=== PATIENT | female | born 1940 | race Caucasian/White ===

== ENCOUNTER → 2019-12-10 | Outpatient (CLI) | payer OTHER ==
[~2019-12-10] MED LIST: ALPR.5 PO; ASPI81EC PO; FAMO20 PO; HYDACE5 PO; MULVITMIND PO
[2019-12-10 11:31] LABS: BASOPHILS ABSOLUTE AUTO 0.05 K/mm3 (0.00-0.23); BASOPHILS PERCENT AUTO 1 % (0-2); EOSINOPHILS ABSOLUTE AUTO 0.07 K/mm3 (0.00-0.68); EOSINOPHILS PERCENT AUTO 2 % (0-6); Hematocrit 41.6 % (33.0-51.0); Hemoglobin 13.8 g/dL (11.5-16.0); IMMATURE GRAN ABSOLUTE AUTO 0.01 K/mm3 (0.00-0.10); IMMATURE GRAN PERCENT AUTO 0 % (0-1); LYMPHOCYTES ABSOLUTE AUTO 1.72 K/mm3 (0.84-5.20); LYMPHOCYTES PERCENT AUTO 39 % (21-46); MONOCYTES ABSOLUTE AUTO 0.38 K/mm3 (0.16-1.47); MONOCYTES PERCENT AUTO 9 % (4-13); Mean Corpuscular HGB 31.2 pg (26.0-34.0); Mean Corpuscular HGB Conc 33.2 g/dL (31.5-36.5); Mean Corpuscular Volume 94 fL (80-100); Mean Platelet Volume 10.2 fL (9.1-12.4); NEUTROPHILS ABSOLUTE AUTO 2.23 K/mm3 (1.96-9.15); NEUTROPHILS PERCENT AUTO 50 % (41-73); Platelet Count 215 K/mm3 (150-400); RDW Coefficient Variation 12.4 % (11.7-14.2); RDW Standard Deviation 42.7 fL (35.1-46.3); Red Blood Cell Count 4.42 M/mm3 (3.80-5.20); White Blood Cell Count 4.46 K/mm3 (4.00-11.30)
[2019-12-10 11:45] LABS: Alanine Aminotransfer (ALT/SGP 31 U/L (12-78); Albumin, Blood 3.2 g/dL (3.4-5.0); Albumin/Globulin Ratio 0.8 (0.8-1.8); Alk Phos 110 U/L (40-126); Anion Gap 8 mmol/L (6-16); Aspartate Aminotrans (AST/SGOT 26 U/L (12-37); Bilirubin, Total 0.4 mg/dL (0.1-1.0); Blood Urea Nitrogen 12 mg/dL (8-24); Bun/Creatinine Ratio 15.2 (12.0-20.0); CO2, Blood 27 mmol/L (21-32); Calcium, Blood 8.6 mg/dL (8.5-10.1); Chloride, Blood 108 mmol/L (98-108); Creatinine, Blood 0.79 mg/dL (0.40-1.00); Globulin, Blood 3.9 g/dL (2.2-4.0); Glomerular Filtration Rate >60 (60-); Glucose, Blood 94 mg/dL (70-99); Potassium, Blood 4.4 mmol/L (3.5-5.5); Sodium, Blood 143 mmol/L (136-145); Total Protein, Blood 7.1 g/dL (6.4-8.2)
== END ==
LOC: LAB SHORT 11:26 → LAB EV 11:26
PROVIDERS: Physician Assistant
DX: R25.2 Cramp and spasm (principal)
CPT/HCPCS: 80053; 85025

== ENCOUNTER 2019-12-22 06:59 | Emergency (ER) | payer OTHER ==
[~2019-12-22] VITALS: Ht 154.9 cm; Wt 74.8 kg
[2019-12-22 07:36] LABS: BASOPHILS ABSOLUTE AUTO 0.03 K/mm3 (0.00-0.23); BASOPHILS PERCENT AUTO 1 % (0-2); EOSINOPHILS ABSOLUTE AUTO 0.09 K/mm3 (0.00-0.68); EOSINOPHILS PERCENT AUTO 2 % (0-6); Hematocrit 42.5 % (33.0-51.0); Hemoglobin 13.9 g/dL (11.5-16.0); IMMATURE GRAN ABSOLUTE AUTO 0.01 K/mm3 (0.00-0.10); IMMATURE GRAN PERCENT AUTO 0 % (0-1); LYMPHOCYTES PERCENT AUTO 38 % (21-46); MONOCYTES ABSOLUTE AUTO 0.58 K/mm3 (0.16-1.47); MONOCYTES PERCENT AUTO 11 % (4-13); Mean Corpuscular HGB 31.3 pg (26.0-34.0); Mean Corpuscular HGB Conc 32.7 g/dL (31.5-36.5); Mean Corpuscular Volume 96 fL (80-100); Mean Platelet Volume 10.3 fL (9.1-12.4); NEUTROPHILS ABSOLUTE AUTO 2.73 K/mm3 (1.96-9.15); NEUTROPHILS PERCENT AUTO 49 % (41-73); Platelet Count 198 K/mm3 (150-400); RDW Coefficient Variation 12.2 % (11.7-14.2); RDW Standard Deviation 43.2 fL (35.1-46.3); Red Blood Cell Count 4.44 M/mm3 (3.80-5.20); White Blood Cell Count 5.54 K/mm3 (4.00-11.30)
[2019-12-22 07:58] LABS: Alanine Aminotransfer (ALT/SGP 28 U/L (12-78); Albumin, Blood 3.2 g/dL (3.4-5.0); Alk Phos 104 U/L (50-136); Anion Gap 3 mmol/L (6-16); Aspartate Aminotrans (AST/SGOT 23 U/L (12-37); Bilirubin, Total 0.5 mg/dL (0.1-1.0); Blood Urea Nitrogen 17 mg/dL (8-24); Bun/Creatinine Ratio 23.6 (12.0-20.0); CO2, Blood 27 mmol/L (21-32); Calcium, Blood 8.4 mg/dL (8.5-10.1); Chloride, Blood 113 mmol/L (98-108); Creatinine, Blood 0.72 mg/dL (0.40-1.00); Globulin, Blood 3.2 g/dL (2.2-4.0); Glomerular Filtration Rate >60 (60-); Glucose, Blood 87 mg/dL (70-99); Potassium, Blood 4.1 mmol/L (3.5-5.5); Sodium, Blood 143 mmol/L (136-145); Total Protein, Blood 6.4 g/dL (6.4-8.2); Troponin I 0.026 ng/mL (0.000-0.040)
== END 2019-12-22 10:58 | disposition home or self-care (01) ==
LOC: ER 06:59
PROVIDERS: Emergency Medicine
DX: R00.1 Bradycardia, unspecified (principal); K21.9 Gastro-esophageal reflux disease without esophagitis
CPT/HCPCS: 71046; 80053; 84484; 85025; 93005; 93010; 99285-25

== ENCOUNTER 2020-02-18 10:44 | Day surgery (SDC) | payer OTHER ==
[~2020-02-18] VITALS: Ht 157.5 cm; Wt 77.7 kg
[~2020-02-18 10:44] MED LIST changes: +Aspir 8181 MG PO
--- NOTE | 2020-02-19 07:44 | NUR ---
SHIFT SUMMARY PATIENT PLEASENT AND COOPERATIVE THROUGHOUT THE NIGHT. PATIENT APPEARED TO SLEEP WELL LAST NIGHT. PATIENT HAD MILD PAIN AT PACEMAKER SITE BUT DENIED NEED FOR ANY MEDICATION. ICE PLACED TO SITE FOR COMFORT. IV ABX GIVEN PER ORDERS. SLING IN PLACE PER ORDERS. PATIENT PROVIDED WITH POST PACEMAKER EDUCUCATION AND MOVEMENT RESTRICTIONS. PATIENT CURRENTLY SITTING UP IN CHAIR WATHCING TV. VITAL SIGNS CHARTED. REPORT GIVEN TO ONCOMING RN.
== END 2020-02-19 12:59 | disposition home or self-care (01) ==
LOC: MHTC 10:44 → PCU 16:40 → MHTC 02-19 12:59
DX: I49.5 Sick sinus syndrome (principal); I48.0 Paroxysmal atrial fibrillation; Z88.5 Allergy status to narcotic agent; I08.2 Rheumatic disorders of both aortic and tricuspid valves; I37.1 Nonrheumatic pulmonary valve insufficiency
CPT/HCPCS: 33208; 71045; 71046; 76937; 99152; 99153; A9270; C1785; C1894; C1898; J0153; J0690; J1644; J2250; J2405; J3010; J7030; J7040

== ENCOUNTER 2020-05-24 12:44 | Inpatient (IN) | payer OTHER ==
[~2020-05-24] VITALS: Ht 154.9 cm; Wt 74.8 kg
[2020-05-24 13:17] LABS: BASOPHILS ABSOLUTE AUTO 0.03 K/mm3 (0.00-0.23); BASOPHILS PERCENT AUTO 1 % (0-2); EOSINOPHILS ABSOLUTE AUTO 0.04 K/mm3 (0.00-0.68); EOSINOPHILS PERCENT AUTO 1 % (0-6); Hematocrit 41.3 % (33.0-51.0); Hemoglobin 13.7 g/dL (11.5-16.0); IMMATURE GRAN ABSOLUTE AUTO 0.02 K/mm3 (0.00-0.10); IMMATURE GRAN PERCENT AUTO 0 % (0-1); LYMPHOCYTES ABSOLUTE AUTO 1.59 K/mm3 (0.84-5.20); LYMPHOCYTES PERCENT AUTO 25 % (21-46); MONOCYTES ABSOLUTE AUTO 0.42 K/mm3 (0.16-1.47); MONOCYTES PERCENT AUTO 7 % (4-13); Mean Corpuscular HGB Conc 33.2 g/dL (31.5-36.5); Mean Corpuscular Volume 93 fL (80-100); NEUTROPHILS ABSOLUTE AUTO 4.31 K/mm3 (1.96-9.15); NEUTROPHILS PERCENT AUTO 67 % (41-73); Platelet Count 201 K/mm3 (150-400); RDW Coefficient Variation 12.2 % (11.7-14.2); Red Blood Cell Count 4.42 M/mm3 (3.80-5.20); White Blood Cell Count 6.41 K/mm3 (4.00-11.30)
[2020-05-24 13:41] LABS: Alanine Aminotransfer (ALT/SGP 22 U/L (12-78); Albumin, Blood 3.2 g/dL (3.4-5.0); Albumin/Globulin Ratio 0.9 (0.8-1.8); Alk Phos 109 U/L (50-136); Anion Gap 7 mmol/L (6-16); Aspartate Aminotrans (AST/SGOT 23 U/L (12-37); Bilirubin, Total 0.5 mg/dL (0.1-1.0); Blood Urea Nitrogen 14 mg/dL (8-24); Bun/Creatinine Ratio 16.3 (12.0-20.0); CO2, Blood 26 mmol/L (21-32); Calcium, Blood 8.5 mg/dL (8.5-10.1); Chloride, Blood 110 mmol/L (98-108); Creatinine, Blood 0.86 mg/dL (0.40-1.00); Globulin, Blood 3.4 g/dL (2.2-4.0); Glomerular Filtration Rate >60 (60-); Glucose, Blood 99 mg/dL (70-99); Potassium, Blood 4.1 mmol/L (3.5-5.5); Sodium, Blood 143 mmol/L (136-145); Total Protein, Blood 6.6 g/dL (6.4-8.2)
--- NOTE | 2020-05-24 19:39 | NUR ---
SHIFT SUMMARY PATIENT W/O C/O PAIN OR NAUSEA SINCE ARRIVAL TO FLOOR. SPOKE W/DR GARCIA RE: LOVENOX ORDERED BY ER, OK TO GIVE. NOC RN NOTIFIED. CALL LIGHT IN REACH. PATIENT REMINDED TO CALL FOR SBA TO BR. PATIENT SPOKE WITH DAUGHTER AFTER ADMIT TO FLOOR, SHE WILL NOTIFY REST OF FAMILY.
--- NOTE | 2020-05-24 21:20 | NUR ---
DR. GARCIA IN TO SEE PT, NO NEW ORDERS AT THIS TIME. PLAN FOR NPO AND EVALUATION WITH DR. CASTANON IN THE MORNING.
--- NOTE | 2020-05-25 04:30 | NUR ---
SHIFT SUMMARY PT A/OX4 WITH VSS, NO ACUTE CHANGES THIS SHIFT. PT DENIES PAIN OR N/V. IS NPO. IND WITH SBA TO BATHROOM WITH GB. PT APPEARS TO HAVE SLEPT WELL T/O SHIFT. PLAN SURGICAL CONSULT; POSSIBLE SURGERY OR D/C. PT CURRENTLY RESTING IN BED WITH EYES CLOSED IN SEMI FOWLERS WITH CALL LIGHT IN REACH. WILL CONT TO MONITOR FOR CHANGES IN PATIENT'S CONDITION AND GIVE REPORT TO ONCOMING RN.
[2020-05-25 06:34] LABS: BASOPHILS ABSOLUTE AUTO 0.03 K/mm3 (0.00-0.23); BASOPHILS PERCENT AUTO 1 % (0-2); EOSINOPHILS ABSOLUTE AUTO 0.05 K/mm3 (0.00-0.68); EOSINOPHILS PERCENT AUTO 1 % (0-6); Hematocrit 41.5 % (33.0-51.0); Hemoglobin 13.4 g/dL (11.5-16.0); IMMATURE GRAN ABSOLUTE AUTO 0.01 K/mm3 (0.00-0.10); IMMATURE GRAN PERCENT AUTO 0 % (0-1); LYMPHOCYTES ABSOLUTE AUTO 1.65 K/mm3 (0.84-5.20); LYMPHOCYTES PERCENT AUTO 34 % (21-46); MONOCYTES ABSOLUTE AUTO 0.44 K/mm3 (0.16-1.47); MONOCYTES PERCENT AUTO 9 % (4-13); Mean Corpuscular HGB 30.8 pg (26.0-34.0); Mean Corpuscular HGB Conc 32.3 g/dL (31.5-36.5); Mean Corpuscular Volume 95 fL (80-100); Mean Platelet Volume 9.9 fL (9.1-12.4); NEUTROPHILS ABSOLUTE AUTO 2.62 K/mm3 (1.96-9.15); NEUTROPHILS PERCENT AUTO 55 % (41-73); Platelet Count 183 K/mm3 (150-400); RDW Coefficient Variation 12.2 % (11.7-14.2); RDW Standard Deviation 42.9 fL (35.1-46.3); Red Blood Cell Count 4.35 M/mm3 (3.80-5.20)
[2020-05-25 06:50] LABS: Alanine Aminotransfer (ALT/SGP 21 U/L (12-78); Albumin, Blood 2.8 g/dL (3.4-5.0); Albumin/Globulin Ratio 0.8 (0.8-1.8); Alk Phos 99 U/L (50-136); Anion Gap 3 mmol/L (6-16); Aspartate Aminotrans (AST/SGOT 25 U/L (12-37); Bilirubin, Total 0.5 mg/dL (0.1-1.0); Blood Urea Nitrogen 9 mg/dL (8-24); Bun/Creatinine Ratio 12.4 (12.0-20.0); CO2, Blood 28 mmol/L (21-32); Calcium, Blood 8.3 mg/dL (8.5-10.1); Chloride, Blood 110 mmol/L (98-108); Creatinine, Blood 0.73 mg/dL (0.40-1.00); Globulin, Blood 3.4 g/dL (2.2-4.0); Glomerular Filtration Rate >60 (60-); Glucose, Blood 87 mg/dL (70-99); Potassium, Blood 3.8 mmol/L (3.5-5.5); Sodium, Blood 141 mmol/L (136-145); Total Protein, Blood 6.2 g/dL (6.4-8.2)
--- NOTE | 2020-05-25 13:01 | NUR ---
Patient is lying in bed and alert. Patient tells me about her stomach hernia and the surgery she will undergo tomorrow. Patient talks about her ruthie, God's good plans for her life and the terrible things she has overcome in life. Patient is strong in her ruthie but is encouraged further by prayer and conversation that is centered around Terrell. I encourage helpful attitudes and practices and provide therapeutic listening. I will continue to remain available to patient and family.
--- NOTE | 2020-05-25 17:06 | NUR ---
SHIFT SUMMARY PT HAS DONE WELL T/O SHIFT. HAS HAD NO C/O N/V OR PAIN. TOLERATING CLEAR LIQUIDS. PLAN IS FOR PT TO GO TO OR TOMORROW WITH DR CASTANON, PT WILL BE NPO AT MIDNIGHT.
[2020-05-25 17:24] LABS: BASOPHILS ABSOLUTE AUTO 0.05 K/mm3 (0.00-0.23); BASOPHILS PERCENT AUTO 1 % (0-2); EOSINOPHILS ABSOLUTE AUTO 0.05 K/mm3 (0.00-0.68); EOSINOPHILS PERCENT AUTO 1 % (0-6); Hematocrit 43.2 % (33.0-51.0); Hemoglobin 13.8 g/dL (11.5-16.0); IMMATURE GRAN ABSOLUTE AUTO 0.01 K/mm3 (0.00-0.10); IMMATURE GRAN PERCENT AUTO 0 % (0-1); LYMPHOCYTES ABSOLUTE AUTO 1.93 K/mm3 (0.84-5.20); LYMPHOCYTES PERCENT AUTO 33 % (21-46); MONOCYTES ABSOLUTE AUTO 0.54 K/mm3 (0.16-1.47); MONOCYTES PERCENT AUTO 9 % (4-13); Mean Corpuscular HGB 30.5 pg (26.0-34.0); Mean Corpuscular HGB Conc 31.9 g/dL (31.5-36.5); Mean Corpuscular Volume 96 fL (80-100); Mean Platelet Volume 10.2 fL (9.1-12.4); NEUTROPHILS ABSOLUTE AUTO 3.23 K/mm3 (1.96-9.15); NEUTROPHILS PERCENT AUTO 56 % (41-73); Platelet Count 192 K/mm3 (150-400); RDW Coefficient Variation 12.2 % (11.7-14.2); RDW Standard Deviation 43.2 fL (35.1-46.3); Red Blood Cell Count 4.52 M/mm3 (3.80-5.20); White Blood Cell Count 5.81 K/mm3 (4.00-11.30)
--- NOTE | 2020-05-26 04:23 | NUR ---
SHIFT SUMMARY A/OX4 WITH VSS. POWERGLIDE PLACED IN PEREZ R/T ACCIDENTAL SELF REMOVAL OF IV. IND IN ROOM. IVF INFUSING PER ORDERS. NPO SINCE MIDNIGHT. REPORTS IVETTE CL DURING DAY, DENIES N/V. VOIDING WITHOUT DIFFICULTY. REPORTS PASSING FLATUS. LARGE BM TONIGHT. PT CURRENTLY WATCHING TV IN BED, DENIES NEEDS. HAS CALL LIGHT IN REACH. WILL CONTINUE TO MONITOR AND GIVE REPORT TO ONCOMGING RN.
--- NOTE | 2020-05-26 10:15 | NUR ---
ASSUMED CARE OF PT, DENIES ANY PAIN OR NAUSEA, REPORTS HAVING SOME "BACK DISCOMFORT" STATES AMBULATING IN ROOM HELPS, CONT. TO MONITOR FOR ANY CHANGES.
--- NOTE | 2020-05-26 15:00 | NUR ---
TOOK OVER CARE FROM NURSE, AFTER REPORT WAS GIVEN.
--- NOTE | 2020-05-26 19:20 | NUR ---
ARRIVED TO ROOM VIA GURNEY FROM PACU S/P VENTRAL HERNIA REPAIR WITH MESH. PT AWAKE, DENIES ANY PAIN JUST SLIGHT NAUSEA. EPIDURAL IN PLACE/INTACT, NUMBESS TO BREASTLINE. VSS AFEBRILE. LASHAWN MIDLINE WITH SCANT SS DRAINAGE, AMATO IN PLACE DRAINING CY. MACK TO LLQ, EMPTIED 70ML SANG FLUID. PT DOZING ON 2L N/C. CALL LIGHT IN REACH.
--- NOTE | 2020-05-27 03:56 | NUR ---
SHIFT CHANGE POD 1 S/P VENTRAL HERNIA REPAIR WITH MESH. LASHAWN TO MIDLINE W/SMALL AMOUNT OF DRAINAGE NOTED. MACK TO LLQ W/80ML OUT THIS SHIFT; DRESSING CDI AND BULB COMPRESSED. Q1 EPIDURAL CHECKS; EPIDURAL SITE CDI W/DERMATONE CURRENTLY AT T11. POWERGLIDE IN LEFT UPPER ARM PATENT AND INFUSING PER ORDERS. PT A/OX4 WITH VSS. SPO2 AT 95% ON 2L NC; CONT BIOX IN PLACE. DENIES PAIN T/O SHIFT. AMATO PLACED PER PROTOCOL. PT CURRENTLY RESTING BED WITH CALL LIGHT AND PAIN BUTTON IN REACH. WILL REPORT TO ONCOMING RN AT SHIFT CHANGE AND CONT TO MONITOR PT FOR CHANGES.
[2020-05-27 05:32] LABS: BASOPHILS ABSOLUTE AUTO 0.02 K/mm3 (0.00-0.23); BASOPHILS PERCENT AUTO 0 % (0-2); EOSINOPHILS PERCENT AUTO 0 % (0-6); Hematocrit 38.1 % (33.0-51.0); Hemoglobin 12.6 g/dL (11.5-16.0); IMMATURE GRAN ABSOLUTE AUTO 0.04 K/mm3 (0.00-0.10); IMMATURE GRAN PERCENT AUTO 0 % (0-1); LYMPHOCYTES ABSOLUTE AUTO 0.56 K/mm3 (0.84-5.20); LYMPHOCYTES PERCENT AUTO 4 % (21-46); MONOCYTES PERCENT AUTO 4 % (4-13); Mean Corpuscular HGB 31.1 pg (26.0-34.0); Mean Corpuscular HGB Conc 33.1 g/dL (31.5-36.5); Mean Corpuscular Volume 94 fL (80-100); NEUTROPHILS ABSOLUTE AUTO 12.58 K/mm3 (1.96-9.15); NEUTROPHILS PERCENT AUTO 92 % (41-73); Platelet Count 187 K/mm3 (150-400); RDW Coefficient Variation 12.1 % (11.7-14.2); RDW Standard Deviation 41.8 fL (35.1-46.3); Red Blood Cell Count 4.05 M/mm3 (3.80-5.20)
--- NOTE | 2020-05-27 06:02 | NUR ---
FULL SENSATION R/T EPIDURAL. PT ABLE TO MOVE BLE AND WIGGLE TOES. INSERTION SITE APPEARS CLEAN/DRY WITH DRESSING INTACT. PT IS A/OX4 WITH VSS. SHE REPORTS NO PAIN T/O SHIFT AND DENIES USING "PAIN BUTTON." WILL CONTINUE Q1 HR EPIDURAL CHECKS.
[2020-05-27 06:20] LABS: Alanine Aminotransfer (ALT/SGP 21 U/L (12-78); Albumin, Blood 2.8 g/dL (3.4-5.0); Albumin/Globulin Ratio 0.9 (0.8-1.8); Alk Phos 93 U/L (50-136); Anion Gap 6 mmol/L (6-16); Aspartate Aminotrans (AST/SGOT 20 U/L (12-37); Bilirubin, Total 0.4 mg/dL (0.1-1.0); Blood Urea Nitrogen 8 mg/dL (8-24); Bun/Creatinine Ratio 10.4 (12.0-20.0); CO2, Blood 28 mmol/L (21-32); Chloride, Blood 104 mmol/L (98-108); Creatinine, Blood 0.77 mg/dL (0.40-1.00); Globulin, Blood 3.1 g/dL (2.2-4.0); Glomerular Filtration Rate >60 (60-); Glucose, Blood 190 mg/dL (70-99); Magnesium, Blood 1.9 mg/dL (1.6-2.4); Phosphorus, Blood 3.5 mg/dL (2.5-4.9); Potassium, Blood 3.7 mmol/L (3.5-5.5); Sodium, Blood 138 mmol/L (136-145); Total Protein, Blood 5.9 g/dL (6.4-8.2)
--- NOTE | 2020-05-27 16:03 | NUR ---
PT DENIES PAIN STATES JUST HAVING "SOME DISCOMFORT." WHEN ASKED TO RATE ON PAIN SCALE, RATES 5/10. AMBULATED IN ROOM. NOW SITTING UP IN CHAIR. TOLERATED AMBULATION WELL.
--- NOTE | 2020-05-27 17:02 | NUR ---
SUMMARY NO ACUTE CHANGES T/O SHIFT. EPIDURAL SITE INTACT. PT DENIES PAIN, STATING "MORE DISCOMFORT" TO ABDOMEN. WHEN SHOWN PAIN SCALE ON BOARD, RATED AT 5/10 WHICH SHE STATES IS VERY TOLERABLE. TOLERATING FULL LIQUID DIET. THIS AM, WHEN ATTEMPTED TO GET UP, PT BECAME LIGHT HEADED AND RETURNED TO LYING POSITION. THIS AFTERNOON, PT SAT UP ON EDGE OF BED, AMBULATED IN ROOM W/O DIFFICULTY W/GAIT BELT AND TWO PERSON SBA. NOW SITTING UP IN CHAIR. VSS. CALL LIGHT IN REACH.
--- NOTE | 2020-05-27 22:15 | NUR ---
EPIDURAL ASSESSMENT PT REPORTS FEELING SLIGHT PRESSURE BUT NO TEMPERATURE W/ ALCOHOL SWAB. REPORTS PAIN OF 0/10 ON 0/10 PAIN SCALE. SCANT AMT DRIED BLOOD NOTICED AT INSERTION SITE.
--- NOTE | 2020-05-28 05:19 | NUR ---
SHIFT SUMMARY VENTRAL HERNIA REPAIR, POD2, A/O X4, VSS, PAIN CONTROLLED VIA EPIDURAL, PT REPORTS FEELING SOME PRESSURE BUT NO TEMPERATURE MID ABD TO UPPER THIGH, PT RESTING COMFORTABLY T/O SHIFT, DENIES PAIN. CALL LIGHT IN REACH, WILL CONTINUE TO MONITOR AND REPORT TO ONCOMING DAY RN.
--- NOTE | 2020-05-28 13:04 | NUR ---
Patient is sitting up in bed and alert. Patient tells me about her surgery and her rough recovery. She then shares about how she has no transportation, about her son's current castillo with Pancreatic cancer and about her concerns to go home without support. Patient did say that her son was coming to [place] from [place], [place] and can stay the weekend. He will go grocery shopping for her but that he has to return to [place] for his Oncologist appointment on Sunday. I provide therapeutic listening, direction on who she can talk to, pastoral marriage and family counselor and prayer. I will continue to remain available to patient and family.
--- NOTE | 2020-05-28 13:04 | NUR ---
DR MASTERS IN TO SEE PT. DC'D EPIDURAL. PT TOLERATED WELL.
--- NOTE | 2020-05-28 17:44 | NUR ---
SUMMARY NO ACUTE CHANGES T/O SHIFT. PT SAT UP IN CHAIR FOR APPROXIMATELY TWO HOURS. MEDICATED ONCE DURING SHIFT FOR NAUSEA. PT'S EPIDURAL DC'D BY DR MASTERS AT 1300. PT HAS DECLINED PAIN MEDS. PROVIDED WARM BLANKET FOR COMFORT. REQUESTED 7 UP FOR HEARTBURN THIS EVENING. CALL LIGHT IN REACH. USES APPROPRIATELY.
--- NOTE | 2020-05-28 21:30 | NUR ---
PATIENT HAS NO COMPLAINTS OF PAIN, IS HOPEFUL FOR A DISCHARGE TO HOME IN THE MORNING. MACK DRAIN IS DRAINED OF 20CC OF S/S FLUID, NOW COMPRESSED. LASHAWN DRESSING TO MIDLINE, COMPRESSED, WITH SCANT OLD DRY SANGUINE DRAINAGE. AMATO CATH REMOVED, PT UP TO THE BR, VOIDED 100CC, AND PASSED LARGE AMOUNTS OF GAS, NO BM.
[2020-05-29 04:29] LABS: BASOPHILS ABSOLUTE AUTO 0.04 K/mm3 (0.00-0.23); BASOPHILS PERCENT AUTO 1 % (0-2); EOSINOPHILS ABSOLUTE AUTO 0.15 K/mm3 (0.00-0.68); EOSINOPHILS PERCENT AUTO 2 % (0-6); Hematocrit 36.3 % (33.0-51.0); Hemoglobin 11.6 g/dL (11.5-16.0); IMMATURE GRAN ABSOLUTE AUTO 0.03 K/mm3 (0.00-0.10); IMMATURE GRAN PERCENT AUTO 0 % (0-1); LYMPHOCYTES ABSOLUTE AUTO 1.56 K/mm3 (0.84-5.20); LYMPHOCYTES PERCENT AUTO 20 % (21-46); MONOCYTES ABSOLUTE AUTO 0.71 K/mm3 (0.16-1.47); MONOCYTES PERCENT AUTO 9 % (4-13); Mean Corpuscular HGB 30.7 pg (26.0-34.0); Mean Corpuscular Volume 96 fL (80-100); Mean Platelet Volume 9.9 fL (9.1-12.4); NEUTROPHILS ABSOLUTE AUTO 5.24 K/mm3 (1.96-9.15); NEUTROPHILS PERCENT AUTO 68 % (41-73); Platelet Count 169 K/mm3 (150-400); RDW Coefficient Variation 12.5 % (11.7-14.2); RDW Standard Deviation 44.5 fL (35.1-46.3); Red Blood Cell Count 3.78 M/mm3 (3.80-5.20); White Blood Cell Count 7.73 K/mm3 (4.00-11.30)
--- NOTE | 2020-05-29 04:36 | NUR ---
PATIENT HAS SLEPT WELL T/O NIGHT. STATES THAT SHE HAS SOME PAIN WHEN OOB TO BR, OTHERWISE SHE STATES SHE HAS VERY LITTLE PAIN. MACK DRAIN COMPRESSED, 20CC TOTAL OF SER/SANG FLUID THIS SHIFT. IV SL, BLOOD DRAWN. PATIENT IS INDEPENDENT IN THE ROOM. NO ACUTE CHANGES, USES CALL LIGHT APPROPRIATELY.
[2020-05-29 04:47] LABS: Albumin, Blood 2.4 g/dL (3.4-5.0); Anion Gap 5 mmol/L (6-16); Blood Urea Nitrogen 10 mg/dL (8-24); Bun/Creatinine Ratio 11.6 (12.0-20.0); CO2, Blood 30 mmol/L (21-32); Calcium, Blood 8.1 mg/dL (8.5-10.1); Chloride, Blood 108 mmol/L (98-108); Creatinine, Blood 0.86 mg/dL (0.40-1.00); Glomerular Filtration Rate >60 (60-); Glucose, Blood 95 mg/dL (70-99); Magnesium, Blood 2.1 mg/dL (1.6-2.4); Phosphorus, Blood 3.3 mg/dL (2.5-4.9); Potassium, Blood 3.6 mmol/L (3.5-5.5); Sodium, Blood 143 mmol/L (136-145)
[2020-05-29] MEDS ORDERED: Percocet 5-3251 EACH PO (11:47)
--- NOTE | 2020-05-29 13:24 | NUR ---
DR DAVIDSON HERE TO SEE PT. REPORTS TO HAVE PT STAY TODAY/TONIGHT, POSSIBLE DISCHARGE TOMMORROW.
--- NOTE | 2020-05-29 13:28 | NUR ---
DR DAVIDSON REPORTS THAT SHE WILL NOTIFY DR LITTLE.
--- NOTE | 2020-05-29 16:42 | NUR ---
SHIFT SUMMARY PT EATING AND DRINKING, VOIDING, PASSING GAS. PT UP IND WITH STEADY GAIT. PT BEEN ASSISTED WITH ADL'S PRN. PT REPORTS FEELING TO FULL AFTER LUNCH AND REPORTS GOING TO EAT A LITTLE LESS DINNER. DR LITTLE TO SEE PT WELL DR DAVIDSON. DR DAVIDSON REPORTS PT TO STAY TONIGHT, REPORTS WILL NOTIFY DR LITTLE.
--- NOTE | 2020-05-30 05:11 | NUR ---
SHIFT SUMMARY PATIENT WOKE THIS AM WITH DISCOMFORT THAT SHE TOOK PO PAIN MEDICATION FOR WITH GOOD RELIEF. PATIENT IS PASSING GAS AND BELCHING. MACK DRAIN WITH 15CC OF SEROUS FLUID. NO OTHER ACUTE CHANGES. CALL LIGHT IN REACH.
--- NOTE | 2020-05-30 07:42 | NUR ---
PT O2 SAT BELOW 90%. PT INSTRUCTED ON I/S. PT REPORTED FEELING SLIGHTLY DIZZY BUT IS DOING BETTER NOW. PT 02 SAT NOW ABOVE 90% BETWEEN 91-95% SETTLING AND STAYING AT 92%. PT REPORTS FEELING BETTER NOW. PT "IT HAPPENS SOMETIMES WHEN I GET UP QUICKLY AND USE MY ENERGY UP QUICK". PT SITTING UP IN CHAIR. PT'S LS CLEAR.
--- NOTE | 2020-05-30 10:57 | NUR ---
OTHER RN Monica. TAKING OVER CARE AT THIS TIME, BEEN GIVEN REPORT.
--- NOTE | 2020-05-30 13:49 | NUR ---
DISCHARGE PT DISCHARGED HOME FROM UNIT AT APROX 1345. PT GIVEN WRITTEN AND VERBAL DISCHARGE INFORMATION AND VERBALIZED UNDERSTANDING. PT ALSO GIVEN FURTHER INSTRUCTION/DEMONSTRATION ON DRAIN MGMT, PT DEMONSTRATED UNDERSTANDING. POWER GLIDE REMOVED, PT TOLERATED WELL. WHEELCHAIR TO CAR.
== END 2020-05-30 14:00 | disposition home or self-care (01) | DRG 354 ==
LOC: ER 12:44 → SURS 15:18
PROVIDERS: Emergency Medicine; Hospitalist; Internal Medicine Gastroenterology; Physician Assistant; Surgery; ADMIT Family Medicine
PROC: 0WUF0JZ Supplement Abdominal Wall with Synthetic Substitute, Open Approach (ICD-10-PCS; principal; 2020-05-26 13:30)
DX: K56.609 Unspecified intestinal obstruction, unspecified as to partial versus complete obstruction (principal); K43.0 Incisional hernia with obstruction, without gangrene; K21.9 Gastro-esophageal reflux disease without esophagitis; K43.2 Incisional hernia without obstruction or gangrene; I48.91 Unspecified atrial fibrillation; Z95.0 Presence of cardiac pacemaker; I49.5 Sick sinus syndrome; M19.90 Unspecified osteoarthritis, unspecified site
CPT/HCPCS: 36415; 74177; 80053; 80069; 83690; 83735; 84100; 85025; 93005; 93010; 94762; 96374-59; 99285-25; C1781; J0690; J1100; J1650; J1885; J2250; J2370; J2405; J2704; J2710; J3010; J7042; J7120; Q9967; U0002

== ENCOUNTER → 2022-06-13 | Outpatient (CLI) | payer OTHER ==
[~2022-06-13] MED LIST changes: +Percocet 5-3251 EACH PO
== END ==
LOC: LAB SHORT 14:51 → LAB 14:51
DX: L57.0 Actinic keratosis (principal)
CPT/HCPCS: 88305

== ENCOUNTER 2022-11-16 02:01 | Emergency (ER) | payer OTHER ==
[~2022-11-16] VITALS: Ht 154.9 cm; Wt 72.6 kg
[2022-11-16 02:56] LABS: BASOPHILS ABSOLUTE AUTO 0.03 K/mm3 (0.00-0.23); BASOPHILS PERCENT AUTO 1 % (0-2); EOSINOPHILS ABSOLUTE AUTO 0.11 K/mm3 (0.00-0.68); EOSINOPHILS PERCENT AUTO 2 % (0-6); Hematocrit 39.1 % (33.0-51.0); Hemoglobin 13.6 g/dL (11.5-16.0); IMMATURE GRAN ABSOLUTE AUTO 0.01 K/mm3 (0.00-0.10); IMMATURE GRAN PERCENT AUTO 0 % (0-1); LYMPHOCYTES ABSOLUTE AUTO 1.65 K/mm3 (0.84-5.20); LYMPHOCYTES PERCENT AUTO 37 % (21-46); MONOCYTES ABSOLUTE AUTO 0.65 K/mm3 (0.16-1.47); MONOCYTES PERCENT AUTO 14 % (4-13); Mean Corpuscular HGB 30.8 pg (26.0-34.0); Mean Corpuscular HGB Conc 34.8 g/dL (31.5-36.5); Mean Corpuscular Volume 89 fL (80-100); Mean Platelet Volume 9.4 fL (9.1-12.4); NEUTROPHILS ABSOLUTE AUTO 2.07 K/mm3 (1.96-9.15); NEUTROPHILS PERCENT AUTO 46 % (41-73); Platelet Count 184 K/mm3 (150-400); RDW Coefficient Variation 12.3 % (11.7-14.2); RDW Standard Deviation 40.3 fL (35.1-46.3); Red Blood Cell Count 4.41 M/mm3 (3.80-5.20); White Blood Cell Count 4.52 K/mm3 (4.00-11.30)
[2022-11-16 03:14] LABS: Bun/Creatinine Ratio 14.8 (12.0-20.0); Calcium, Blood 8.4 mg/dL (8.5-10.1); Creatinine, Blood 0.94 mg/dL (0.40-1.00); Magnesium, Blood 2.2 mg/dL (1.6-2.4); Potassium, Blood 3.1 mmol/L (3.5-5.5)
== END 2022-11-16 04:32 | disposition home or self-care (01) ==
LOC: ER 02:01
PROVIDERS: Student in an Organized Health Care Education/Training Program
DX: R11.2 Nausea with vomiting, unspecified (principal); R19.7 Diarrhea, unspecified; E87.6 Hypokalemia; R12 Heartburn; Z88.5 Allergy status to narcotic agent
CPT/HCPCS: 36415; 80048; 83735; 85025; 96374; 99284-25; A9270; J2405

== ENCOUNTER 2023-08-03 08:41 | Emergency (ER) | payer OTHER ==
[~2023-08-03] VITALS: Ht 154.9 cm; Wt 76.2 kg
[2023-08-03 11:00] LABS: Source, Urine Clean Catch
[2023-08-03 11:03] LABS: BASOPHILS ABSOLUTE AUTO 0.06 K/mm3 (0.00-0.23); BASOPHILS PERCENT AUTO 1 % (0-2); EOSINOPHILS ABSOLUTE AUTO 0.07 K/mm3 (0.00-0.68); EOSINOPHILS PERCENT AUTO 1 % (0-6); Hematocrit 42.7 % (33.0-51.0); Hemoglobin 14.4 g/dL (11.5-16.0); IMMATURE GRAN ABSOLUTE AUTO 0.02 K/mm3 (0.00-0.10); IMMATURE GRAN PERCENT AUTO 0 % (0-1); LYMPHOCYTES ABSOLUTE AUTO 1.33 K/mm3 (0.84-5.20); LYMPHOCYTES PERCENT AUTO 24 % (21-46); MONOCYTES ABSOLUTE AUTO 0.51 K/mm3 (0.16-1.47); MONOCYTES PERCENT AUTO 9 % (4-13); Mean Corpuscular HGB 31.4 pg (26.0-34.0); Mean Corpuscular HGB Conc 33.7 g/dL (31.5-36.5); Mean Corpuscular Volume 93 fL (80-100); Mean Platelet Volume 9.6 fL (9.1-12.4); NEUTROPHILS ABSOLUTE AUTO 3.47 K/mm3 (1.96-9.15); NEUTROPHILS PERCENT AUTO 64 % (41-73); Platelet Count 219 K/mm3 (150-400); RDW Coefficient Variation 12.4 % (11.7-14.2); RDW Standard Deviation 42.5 fL (35.1-46.3); Red Blood Cell Count 4.59 M/mm3 (3.80-5.20); White Blood Cell Count 5.46 K/mm3 (4.00-11.30)
[2023-08-03 11:15] LABS: Bilirubin, Urine Neg (Neg); Blood, Urine Neg (Neg); Color, Urine Yellow (P-Yellow); Glucose Qualitative, Urine Neg (Neg); Ketones, Urine Neg (Neg); Leukocyte Esterase, Urine 2+ (Neg); Nitrite, Urine Neg (Neg); Protein, Urine Neg (Neg); Specific Gravity, Urine 1.015 (1.003-1.022); Urobilinogen, Urine NORM (Normal)
[2023-08-03 11:17] LABS: Appearance, Urine Hazy (Clear)
[2023-08-03 11:21] LABS: Bacteria Few /hpf; Red Blood Cells, Urine 0-2 /hpf (0-2); Squamous Epithelial Cells Mod /hpf (Few)
[2023-08-03 11:22] LABS: Transitional Epithelial Cells Rare /hpf (0-Rare)
[2023-08-03 11:30] LABS: Albumin, Blood 3.3 g/dL (3.4-5.0); Albumin/Globulin Ratio 0.9 (0.8-1.8); Bilirubin, Total 0.5 mg/dL (0.1-1.0); Bun/Creatinine Ratio 14.7 (12.0-20.0); Calcium, Blood 9.2 mg/dL (8.5-10.1); Creatinine, Blood 0.88 mg/dL (0.40-1.00); Globulin, Blood 3.5 g/dL (2.2-4.0); Potassium, Blood 4.1 mmol/L (3.5-5.5); Total Protein, Blood 6.8 g/dL (6.4-8.2)
[2023-08-03 12:34] LABS: Influenza A, PCR NEGATIVE (NEGATIVE); Influenza B, PCR NEGATIVE (NEGATIVE); Resp Syncytial Virus, PCR NEGATIVE (NEGATIVE); SARS-Cov-2 (COVID-19) PCR, MMC NEGATIVE (NEGATIVE)
[2023-08-03 13:44] VITALS: BP 143/84
== END 2023-08-03 13:45 | disposition home or self-care (01) ==
LOC: ER 08:41
PROVIDERS: Student in an Organized Health Care Education/Training Program
DX: K52.9 Noninfective gastroenteritis and colitis, unspecified (principal); R09.82 Postnasal drip; Z88.5 Allergy status to narcotic agent; K21.9 Gastro-esophageal reflux disease without esophagitis; Z85.038 Personal history of other malignant neoplasm of large intestine
CPT/HCPCS: 0241U; 71046; 80053; 81001; 83690; 85025; 87086; 93005; 93010; 99284-25

== ENCOUNTER 2024-04-03 06:10 | Observation (INO) | payer OTHER ==
[~2024-04-03] VITALS: Ht 154.9 cm; Wt 74.5 kg
[2024-04-03] MEDS ORDERED: Famotidine 10 MG/ML 2ML Vial IV ONE (06:45)
[2024-04-03] MEDS ORDERED: Ondansetron HCl 2 MG / ML 2ML Vial IV ONE (06:45)
[2024-04-03] MEDS ORDERED: Mag Hydrox/AL Hydrox/Simeth 30 ML UDC PO ONE (06:45)
[2024-04-03 07:00] LABS: BASOPHILS ABSOLUTE AUTO 0.05 K/mm3 (0.00-0.23); BASOPHILS PERCENT AUTO 1 % (0-2); EOSINOPHILS ABSOLUTE AUTO 0.13 K/mm3 (0.00-0.68); EOSINOPHILS PERCENT AUTO 2 % (0-6); Hematocrit 38.7 % (33.0-51.0); Hemoglobin 12.5 g/dL (11.5-16.0); IMMATURE GRAN ABSOLUTE AUTO 0.02 K/mm3 (0.00-0.10); IMMATURE GRAN PERCENT AUTO 0 % (0-1); LYMPHOCYTES ABSOLUTE AUTO 1.69 K/mm3 (0.84-5.20); LYMPHOCYTES PERCENT AUTO 29 % (21-46); MONOCYTES ABSOLUTE AUTO 0.57 K/mm3 (0.16-1.47); MONOCYTES PERCENT AUTO 10 % (4-13); Mean Corpuscular HGB 30.6 pg (26.0-34.0); Mean Corpuscular HGB Conc 32.3 g/dL (31.5-36.5); Mean Corpuscular Volume 95 fL (80-100); Mean Platelet Volume 9.9 fL (9.1-12.4); NEUTROPHILS ABSOLUTE AUTO 3.36 K/mm3 (1.96-9.15); NEUTROPHILS PERCENT AUTO 58 % (41-73); Platelet Count 195 K/mm3 (150-400); RDW Coefficient Variation 12.6 % (11.7-14.2); RDW Standard Deviation 43.8 fL (35.1-46.3); Red Blood Cell Count 4.08 M/mm3 (3.80-5.20); White Blood Cell Count 5.82 K/mm3 (4.00-11.30)
[2024-04-03 07:33] LABS: Alanine Aminotransfer (ALT/SGP 36 U/L (12-78); Albumin/Globulin Ratio 0.9 (0.8-1.8); Alk Phos 106 U/L (50-136); Anion Gap 8 mmol/L (3-11); Aspartate Aminotrans (AST/SGOT 26 U/L (12-37); Bilirubin, Direct <0.1 mg/dL (0.0-0.3); Bilirubin, Indirect Unable to Calculate mg/dL (0.1-0.7); Bilirubin, Total 0.2 mg/dL (0.1-1.0); Blood Urea Nitrogen 14 mg/dL (8-24); Bun/Creatinine Ratio 16.3 (12.0-20.0); CO2, Blood 25 mmol/L (21-32); Calcium, Blood 8.1 mg/dL (8.5-10.1); Chloride, Blood 114 mmol/L (98-108); Creatinine, Blood 0.86 mg/dL (0.40-1.00); Globulin, Blood 3.2 g/dL (2.2-4.0); Glomerular Filtration Rate 66 (60-); Glucose, Blood 108 mg/dL (70-99); Sodium, Blood 143 mmol/L (136-145); Total Protein, Blood 6.2 g/dL (6.4-8.2)
[2024-04-03] MEDS ORDERED: Aspirin 325 MG Tab PO ONE (07:55)
[2024-04-03] MEDS ORDERED: Nitroglycerin 1 INCH/GM PKT TOP ONE (07:55)
[2024-04-03] MEDS ORDERED: Dose Adjust by Pharmacy XX STA ×2 (08:14→18:06)
[2024-04-03] MEDS ORDERED: Heparin Sodium,Porcine/0.5 NS 500 ML IV SCH (08:15)
[2024-04-03] MEDS ORDERED: Heparin Sodium 5000 Units/ML 1ML MDV IV ONE (08:15)
[2024-04-03 08:24] LABS: Anti-Xa UFH, PHA Monitoring <0.10 IU/mL; International Normalized Ratio 0.93
[2024-04-03] MEDS ORDERED: HydrALAZINE HCl 20 MG / ML 1ML Vial IV PRN (09:20)
[2024-04-03 12:22] VITALS: BP 162/79
--- NOTE | 2024-04-03 19:04 | NUR ---
SHIFT SUMMARY PT AXO, PLEASANT AND COOPERATIVE WITH CARE. UP WITH SBA TO BATHROOM. PT STATES THAT SHE WILL PROBABLY HAVE A BM SOON. HAT IN THE TOILET SO THAT THIS NURSE CAN ASSESS R/T PT STATES SHE HAS BLACK BMS AT HOME. HEPARIN GTT PER EMAR. PT STATES THAT HER CHEST STILL FEELS PRESSURE BUT NOT PAIN. BED IN LOW POSITION, CALL LIGHT WITHIN REACH. PT UP TO CHAIR MOST OF THE DAY. PT ORIENTED TO ROOM. ADMISSION COMPLETED.
[2024-04-03 19:41] VITALS: BP 113/72
[2024-04-04 05:16] LABS: BASOPHILS ABSOLUTE AUTO 0.05 K/mm3 (0.00-0.23); BASOPHILS PERCENT AUTO 1 % (0-2); EOSINOPHILS ABSOLUTE AUTO 0.19 K/mm3 (0.00-0.68); EOSINOPHILS PERCENT AUTO 3 % (0-6); Hematocrit 39.5 % (33.0-51.0); Hemoglobin 12.8 g/dL (11.5-16.0); IMMATURE GRAN ABSOLUTE AUTO 0.01 K/mm3 (0.00-0.10); IMMATURE GRAN PERCENT AUTO 0 % (0-1); LYMPHOCYTES ABSOLUTE AUTO 1.98 K/mm3 (0.84-5.20); LYMPHOCYTES PERCENT AUTO 34 % (21-46); MONOCYTES ABSOLUTE AUTO 0.67 K/mm3 (0.16-1.47); MONOCYTES PERCENT AUTO 12 % (4-13); Mean Corpuscular HGB 31.2 pg (26.0-34.0); Mean Corpuscular HGB Conc 32.4 g/dL (31.5-36.5); Mean Corpuscular Volume 96 fL (80-100); NEUTROPHILS ABSOLUTE AUTO 2.94 K/mm3 (1.96-9.15); NEUTROPHILS PERCENT AUTO 50 % (41-73); Platelet Count 192 K/mm3 (150-400); RDW Coefficient Variation 12.6 % (11.7-14.2); White Blood Cell Count 5.84 K/mm3 (4.00-11.30)
[2024-04-04] MEDS ORDERED: Pantoprazole Sodium 40 MG Tab PO SCH (06:00)
--- NOTE | 2024-04-04 06:34 | NUR ---
END OF SHIFT SUMMARY PT A&OX4. HEPARIN GTT INFUSING AT 13U/K/HR. NO TITRATION NEEDED PER PHARMACIST. NEXT DRAW 0700. PT REMAINS NPO FOR STRESS TEST THIS AM. PT INSTRUCTED TO CALL FOR ASSIST TO BR HAS HX OF FALLS, REPORTS INTERMITTANT DIZZINESS AND USES WALKING STICK. DENIES CP OR PALPITATIONS. A-PACED ON TELE. NO ACUTE EVENTS OVERNIGHT.
[2024-04-04 07:36] VITALS: BP 153/71
[2024-04-04] MEDS ORDERED: Dose Adjust by Pharmacy XX STA (07:58)
[2024-04-04] MEDS ORDERED: Caffeine Citrated 60 MG/3 ML Vial ONE (13:22)
[2024-04-04] MEDS ORDERED: Regadenoson 0.4 MG/5 ML SYRINGE ONE (13:22)
[2024-04-04 15:44] VITALS: BP 131/69
--- NOTE | 2024-04-04 17:53 | NUR ---
SHIFT SUMMARY: PT IS A&OX4/INDEPENDENT; MAKES NEEDS KNOWN. COMPLETED HER STRESS TEST TODAY; NO CHEST PAIN OR PRESSURE DURING THE SHIFT. RESULTS ARE BACK; PER BURDEN CONTINUE HEPARIN DRIP AND D/C TOMORROW. PATIENT IS IN BED, CALL LIGHT WITHIN REACH, NO SIGNS OR SYMPTOMS OF DISTRESS, PLAN OF CARE ONGOING. (CHARTING COMPLETED DURING DOWNTIME TODAY WAS COMPLETED ON PAPER CHARTING WELL)
[2024-04-04 20:21] VITALS: BP 146/64
[2024-04-05 04:03] VITALS: BP 180/75
[2024-04-05 04:34] VITALS: BP 166/86
[2024-04-05 05:09] LABS: Hematocrit 42.2 % (33.0-51.0); Hemoglobin 13.6 g/dL (11.5-16.0); Mean Platelet Volume 9.9 fL (9.1-12.4); Platelet Count 185 K/mm3 (150-400)
[2024-04-05] MEDS ORDERED: Dose Adjust by Pharmacy XX STA (05:30)
--- NOTE | 2024-04-05 06:48 | NUR ---
END OF SHIFT SUMMARY PT A&OX4, ANXIOUS AT TIMES. DENIES CP/PALPITATIONS. REMAINS A-PACED ON TELE. REMAINS ON HEPARIN GTT, TITRATED PER PHARMACY. NO ACUTE EVENTS OVERNIGHT.
[2024-04-05 07:22] VITALS: BP 151/73
--- NOTE | 2024-04-05 09:00 | NUR ---
Pt sitting up on the side of the bed eating breakfast, a/ox4, plesant and cooperative with care, follows commands well, denies pain, states she slept well last night, lungs are clear t/o, resp even and unlabored, no cough noted, hrr, tele in place, she is paced rhythm, no edema noted, ppp+2, cap refill < 3 sec, vs stable, afebrile, piv x2, sites are clear and patent, btx4, abd flat soft nontender, voids without diff, skin c/w/d, maew, natasha, call light in reach.
[2024-04-05] MEDS ORDERED: PANT40 PO (12:14)
--- NOTE | 2024-04-05 12:45 | NUR ---
pt has been discharged to home, iv's x2 removed intact, went over discharge instructions with her, she verbalized understanding, new med faxed to [facility], left via wheelchair with nurse in attendence.
== END 2024-04-05 16:01 | disposition home or self-care (01) ==
LOC: ER 06:10 → MEDS 06:11 → ENPENDDIS 04-05 12:42 → MEDS 04-05 16:01
PROVIDERS: Student in an Organized Health Care Education/Training Program; ADMIT Family Medicine
DX: R07.89 Other chest pain (principal); R79.89 Other specified abnormal findings of blood chemistry; K21.9 Gastro-esophageal reflux disease without esophagitis; I48.91 Unspecified atrial fibrillation; I49.5 Sick sinus syndrome; Z95.0 Presence of cardiac pacemaker; Z88.5 Allergy status to narcotic agent; Z79.82 Long term (current) use of aspirin
CPT/HCPCS: 36415; 71046; 78452; 80048; 80076; 83690; 83735; 84484; 85014; 85018; 85025; 85049; 85520; 85610; 93017; 93306; 96365-59; 96366; 96366-59; 96375-59; 96376; 96376-59; 99285-25; A9270; A9500; G0378; J0706; J1644; J2405; J2785